=== PATIENT | male | born 1985 | race Caucasian/White ===

== ENCOUNTER 2017-01-24 22:24 | Emergency (ER) | payer SELFPAY ==
[~2017-01-24] VITALS: Ht 165.1 cm; Wt 59.0 kg
--- NOTE | 2017-01-24 22:24 | NUR ---
PT BIB [facility], PREBOOK. TAKEN TO [facility]
[2017-01-24 22:28] VITALS: BP 135/83
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
--- NOTE | 2017-01-24 22:46 | NUR ---
Dr. Quinn evaluating patient
--- NOTE | 2017-01-24 22:47 | NUR ---
Patient appears to be resting comfortably in bed. Vital Signs within normal limits. Respirations even and unlabored.
--- NOTE | 2017-01-24 23:12 | NUR ---
PT TAKEN TO CT
--- NOTE | 2017-01-25 00:18 | NUR ---
Pupils equal and reactive to light bilaterally. No facial droop noted. No smile deficit noted. Speech normal for patient. Patient is alert and oriented to person, place, time and event. Bilateral hand parts administrator equal. Bilateral foot push equal.
[2017-01-25 00:57] VITALS: BP 122/72
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
== END 2017-01-25 00:59 | disposition home or self-care (01) ==
LOC: MED 22:24
DX: Z02.89 Encounter for other administrative examinations (principal); S00.83XA Contusion of other part of head, initial encounter; V89.2XXA Person injured in unspecified motor-vehicle accident, traffic, initial encounter; Y93.89 Activity, other specified; Y92.89 Other specified places as the place of occurrence of the external cause; Y99.8 Other external cause status